=== PATIENT | female | born 1950 | race Caucasian/White ===

== ENCOUNTER 2020-10-01 07:12 | Emergency (ER) | payer MEDICARE ==
[~2020-10-01] VITALS: Ht 157.5 cm; Wt 54.7 kg
--- NOTE | 2020-10-01 07:59 | NUR ---
PT. PRESENTS TO THE ED FOR FURTHER EVALUATION AND TREATMENT OF COVID. PT. REPORTS SHE HAS KNOWN COVID SINCE SUNDAY AND IS HERE TO BE TREATED FOR IT. PT. STATES HER SYMPTOMS ARE MILD. LUNGS ARE CTA THROUGHOUT. RESPIRATIONS ARE EUPNEIC WITH R/A SATS 96%. THE CALL LIGHT IS IN REACH AND THE BP CUFF AND PULSE OX ARE IN PLACE. PT. IS DRINKING WATER AT THIS TIME. VSS.
[2020-10-01] MEDS ORDERED: FILTER 0.22 MICRON IV ONE (08:30)
[2020-10-01] MEDS ORDERED: BAMLANIVIMAB 700 MG in SODIUM CHLORIDE 0.9% 250 ML IVPB ONE (08:30)
--- NOTE | 2020-10-01 09:11 | NUR ---
VSS. PT. IS RESTING WITHOUT CONCERNS. IV MEDS ARE INFUSING ON THE PUMP. PT. WAS GIVEN MEDICATION INFORMATION.
--- NOTE | 2020-10-01 10:28 | NUR ---
PT.'S INFUSION HAS COMPLETED, NO RXN. PT. IS RESTING WITHOUT CONCERNS. VSS.
--- NOTE | 2020-10-01 12:00 | NUR ---
PT. WAS GIVEN DISCHARGE INSTRUCTIONS WITH UNDERSTANDING VERBALIZED ALONG WITH WILLINGNESS TO COMPLY. PT.'S IV WAS DCD', CATH TIP INTACT. PRESSURE HELD WITH HEMOSTASIS ACHIEVED. PT. WAS AMBULATORY TO THE DISCHARGE DESK. VSS.
[2020-10-01 12:02] VITALS: BP 137/71
== END 2020-10-01 12:05 | disposition home or self-care (01) ==
LOC: ED 09:38
DX: U07.1 COVID-19 (principal); J06.9 Acute upper respiratory infection, unspecified; R51.9 Headache, unspecified; R05 Cough; M79.10 Myalgia, unspecified site
CPT/HCPCS: J7050; M0239; Q0239

== ENCOUNTER → 2020-11-30 | Outpatient (CLI) | payer MEDICARE | END | disposition home or self-care (01) | LOC: CFH 14:12 | PROVIDERS: ATTEND Internal Medicine Cardiovascular Disease | DX: I08.0 Rheumatic disorders of both mitral and aortic valves (principal); I25.10 Atherosclerotic heart disease of native coronary artery without angina pectoris; R06.02 Shortness of breath | CPT/HCPCS: 75571; 93306 ==